=== PATIENT | male | born 1985 | race American Indian/Alaskan Native ===

== ENCOUNTER 2018-05-17 13:38 | Emergency (ER) | payer SELFPAY ==
[2018-05-17 14:37] VITALS: BP 147/90
--- NOTE | 2018-05-17 18:20 | Emergency Department Report ---
[facility] [facility] Chief Complaint: Skin/Abscess/Foreign Body Stated Complaint: RAISEN Time Seen by Provider: 05/17/18 18:04 Allergies/Adverse Reactions: Allergies Allergy/AdvReac Type Severity Reaction Status Date / Time No Known Allergies Allergy Verified 05/17/18 14:34 ED Review of Systems ROS: Stated complaint: RAISEN Other details as noted in HPI ED Past Medical Hx - Past Medical History Previous Medical History?: No - Surgical History Past Surgical History?: No - Social History Smoking Status: Never Smoker Substance Use Type: None ED Abscess Boil Physical Exam - Exam General: Vital signs noted. No distress. Alert and acting appropriately. ED Course Vital Signs 05/17/18 14:34 Temperature 98.9 F Pulse Rate 58 L Respiratory 16 Rate Blood Pressure 147/90 O2 Sat by Pulse 100 Oximetry Critical care attestation.: If time is entered above; I have spent that time in minutes in the direct care of this critically ill patient, excluding procedure time. ED Disposition Condition: Stable Referrals: PRIMARY CARE, [Primary Care Provider] - 3-5 Days
== END 2018-05-17 19:38 | disposition left against medical advice (07) ==
LOC: ED 13:38
DX: L02.92 Furuncle, unspecified (principal); Z53.21 Procedure and treatment not carried out due to patient leaving prior to being seen by health care provider